=== PATIENT | female | born 1970 | race Caucasian/White ===

== ENCOUNTER 2018-07-19 19:42 | Emergency (ER) | payer OTHER ==
[2018-07-19] MEDS: KETOROLAC 60 MG INJ IM (21:33)
[2018-07-19] MEDS: OXYCODONE/ACETAMINOPHEN (5/325) TAB PO (21:33)
== END 2018-07-19 21:40 | disposition home or self-care (01) ==
LOC: FTE 19:42
DX: K08.89 Other specified disorders of teeth and supporting structures (principal)
CPT/HCPCS: 81025; 96372; 99284-25